=== PATIENT | male | born 1970 | race Caucasian/White ===

== ENCOUNTER 2022-08-29 13:34 | Emergency (ER) | payer OTHER ==
[2022-08-29 14:01] VITALS: BMI 18.8
[2022-08-29] MEDS ORDERED: ACETAMINOPHEN 325 MG TABLET (FP) PO ONE (15:16)
[2022-08-29 15:58] LABS: EPI CELLS 31 /uL (0-25.1); HYALINE CASTS 103 /uL (0-3.1); PH,URINE 5.5 (5.0-8.0); URINE APPEARANCE TURBID; URINE BACTERIA 204 /uL (0-1359); URINE BILIRUBIN NEGATIVE (NEGATIVE); URINE COLOR DK YELLOW; URINE GLUCOSE (UA) NEGATIVE (NEGATIVE); URINE KETONE TRACE (NEGATIVE); URINE LEUK ESTERASE 3+ (NEGATIVE); URINE NITRITE NEGATIVE (NEGATIVE); URINE PROTEIN 3+ (NEGATIVE); URINE WBC 27967 /uL (0-25.8)
[2022-08-29] MEDS ORDERED: ACETAMINOPHEN 325 MG TABLET (FP) ONE (16:07)
[2022-08-29 16:11] LABS: URINE RBC 2285.6 /uL (0-23.9)
[2022-08-29 16:14] VITALS: BP 121/80; PULSE 98; RESP 18; TEMP 98
== END 2022-08-29 16:19 | disposition home or self-care (01) ==
LOC: JER 13:34
DX: N50.811 Right testicular pain (principal); N49.2 Inflammatory disorders of scrotum
CPT/HCPCS: 76870-TC; 81003; 87086; 99284-25